=== PATIENT | male | born 1940 | race Caucasian/White ===

== ENCOUNTER 2016-11-18 08:35 | Emergency (ER) | payer OTHER ==
[~2016-11-18] VITALS: Ht 172.7 cm; Wt 75.0 kg
[~2016-11-18 08:35] MED LIST: ALBUD HHN; ALFUZOSIN HYDRO10 M1 PO; ATORVASTATIN CA40 M1 PO; ATRUD HHN; AZOPT10 ML OU; BETIMOL5 M1 OP; BETIMOL5 M1 OU; CEL250 PO; CEL500 PO; FOSAMAX70 MG PO; GOOD SENSE ASPI81 M3 PO; HYDROCHLOROTH12.5 M2 PO; LAC PO; LEVAQUIN750 MG PO; LEVOTHYROXINE0.05 M2 PO; LOVASTATIN40 MG PO; MAXIMUM D310000 IU PO; MESTINON TIMES180 MG PO; MESTINON60 MG PO; NEU300 PO; NIFEDIPINE ER30 MG PO; OMEPRAZOLE DR20 M1 PO; PREDNISONE2.5 MG PO; SERTRALINE HYD100 MG PO; TES100 PO; ZESTRIL5 MG PO; ZOL50 PO
[2016-11-18 08:57] VITALS: BP 140/85
== END 2016-11-18 10:58 | disposition home or self-care (01) ==
LOC: ED 08:35
DX: L02.212 Cutaneous abscess of back [any part, except buttock and flank] (principal); I10 Essential (primary) hypertension; E03.9 Hypothyroidism, unspecified
CPT/HCPCS: J2001

== ENCOUNTER 2016-12-18 14:51 | Inpatient (IN) | payer OTHER ==
[~2016-12-18] VITALS: Ht 172.7 cm; Wt 75.3 kg
[2016-12-18 16:03] LABS: microscopic required? NO
[2016-12-18 16:31] LABS: PLATELET COUNT 176 x10^3mcL (130-400)
[2016-12-18 16:35] LABS: BASOPHIL % 2.1 % (0-2)
[2016-12-18 16:50] LABS: CALCIUM 8.6 mg/dL (8.5-10.1); CARBON DIOXIDE 30.5 mmol/L (21-32); CHLORIDE SERUM 111 mmol/L (98-107); CREATININE SERUM 1.3 mg/dL (0.7-1.3); GLUCOSE SERUM 95 mg/dL (74-106); POTASSIUM SERUM 3.9 mmol/L (3.5-5.1); SODIUM SERUM 148 mmol/L (136-145)
[2016-12-18 16:58] LABS: CK-MB 1.3 ng/mL (0-3.6)
[2016-12-18 17:02] LABS: ALBUMIN 3.7 g/dL (3.4-5.0); ALKALINE PHOSPHATASE 63 U/L (46-116); ALT/SGPT 26 U/L (16-63); AST/SGOT 28 U/L (15-37); BILIRUBIN TOTAL 0.41 mg/dL (0.20-1.00)
[2016-12-18 17:13] LABS: T3 TOTAL 0.71 ng/mL
[2016-12-18 18:32] VITALS: BP 135/71
[2016-12-18 18:38] VITALS: Ht 172.7 cm; Wt 75.3 kg
[2016-12-18 19:18] LABS: UA SPECIFIC GRAVITY >=1.030 (1.005-1.035); urine erythrocyte NEGATIVE (NEGATIVE)
[2016-12-18 19:23] LABS: FREE T4 0.85 ng/dL (0.76-1.46); FREE THYROXINE INDEX 1.8 ug/dL (1.4-4.5); T4(THYROXINE) 5.8 ug/dL (4.7-13.3)
[2016-12-18 19:27] LABS: AMPHETAMINE QUAL UR NONE DETECTED (NEG <=1000)
[2016-12-18 20:21] LABS: C REACTIVE PROTEIN < 0.2 mg/dL (<=0.9)
[2016-12-18 20:48] LABS: CHOLESTEROL/HDL RATIO 3.1
[2016-12-18 21:06] LABS: ERYTHROCYTE SED RATE 20 mm/hr (0-20)
[2016-12-18 22:12] VITALS: BP 117/62
[2016-12-19 05:55] VITALS: BP 139/81
[2016-12-19 06:39] LABS: CALCIUM 7.8 mg/dL (8.5-10.1); CARBON DIOXIDE 27.7 mmol/L (21-32); CHLORIDE SERUM 111 mmol/L (98-107); GLUCOSE SERUM 90 mg/dL (74-106); MAGNESIUM 1.9 mg/dL (1.8-2.4); PHOSPHOROUS 3.3 mg/dL (2.5-4.9); POTASSIUM SERUM 3.9 mmol/L (3.5-5.1); SODIUM SERUM 145 mmol/L (136-145)
[2016-12-19 07:01] LABS: BASOPHIL % 0.5 % (0-2); PLATELET COUNT 165 x10^3mcL (130-400)
[2016-12-19 07:17] LABS: RED CELL DISTRIBUTION WIDTH 14.8 % (11.5-14.5)
[2016-12-19 10:06] VITALS: BP 153/83
[2016-12-19 13:43] VITALS: BP 136/85
[2016-12-19 18:09] VITALS: BP 156/82
[2016-12-19 21:55] VITALS: BP 152/74
[2016-12-20 06:04] VITALS: BP 143/85
[2016-12-20 10:17] VITALS: BP 145/83
[2016-12-20 14:00] VITALS: BP 126/77
[2016-12-20 18:21] VITALS: BP 142/76
[2016-12-20 21:49] VITALS: BP 115/76
[2016-12-21 05:27] VITALS: BP 104/69
[2016-12-21 07:03] LABS: BASOPHIL % 0.3 % (0-2); PLATELET COUNT 190 x10^3mcL (130-400)
[2016-12-21 07:07] LABS: RED CELL DISTRIBUTION WIDTH 14.7 % (11.5-14.5)
[2016-12-21 07:22] LABS: CALCIUM 8.5 mg/dL (8.5-10.1); CARBON DIOXIDE 28.6 mmol/L (21-32); CHLORIDE SERUM 109 mmol/L (98-107); GLUCOSE SERUM 86 mg/dL (74-106); POTASSIUM SERUM 3.6 mmol/L (3.5-5.1); SODIUM SERUM 146 mmol/L (136-145)
[2016-12-21 10:22] VITALS: BP 121/74
[2016-12-21] MEDS ORDERED: PROS5 PO (11:13)
[2016-12-21] MEDS ORDERED: NATURAL SAW PA160 MG PO (11:15)
[2016-12-21] MEDS ORDERED: NIFEDIPINE30 MG (11:44)
[2016-12-21 12:01] VITALS: BP 121/74
== END 2016-12-21 13:24 | disposition home or self-care (01) | DRG 73 ==
LOC: ED 14:51 → DU 17:36
PROVIDERS: Family Medicine; Specialist; ADMIT Family Medicine
DX: G90.9 Disorder of the autonomic nervous system, unspecified (principal); N17.0 Acute kidney failure with tubular necrosis; E87.0 Hyperosmolality and hypernatremia; E86.0 Dehydration; K21.9 Gastro-esophageal reflux disease without esophagitis; E03.9 Hypothyroidism, unspecified; F43.10 Post-traumatic stress disorder, unspecified; G70.00 Myasthenia gravis without (acute) exacerbation; E78.5 Hyperlipidemia, unspecified; E87.8 Other disorders of electrolyte and fluid balance, not elsewhere classified; H91.93 Unspecified hearing loss, bilateral; Z53.29 Procedure and treatment not carried out because of patient's decision for other reasons; I95.9 Hypotension, unspecified; I10 Essential (primary) hypertension; M81.0 Age-related osteoporosis without current pathological fracture; G62.9 Polyneuropathy, unspecified; W19.XXXA Unspecified fall, initial encounter; Y93.89 Activity, other specified; Z95.0 Presence of cardiac pacemaker; Z86.73 Personal history of transient ischemic attack (TIA), and cerebral infarction without residual deficits; Y92.89 Other specified places as the place of occurrence of the external cause; Z90.49 Acquired absence of other specified parts of digestive tract; Y99.8 Other external cause status; Z79.899 Other long term (current) drug therapy; Z83.3 Family history of diabetes mellitus; Z80.9 Family history of malignant neoplasm, unspecified; Z81.8 Family history of other mental and behavioral disorders; Z98.42 Cataract extraction status, left eye; Z98.41 Cataract extraction status, right eye
CPT/HCPCS: 36600; 80307; 83880; 84439; G0480; J1885; J3475; J7030; J7506; J7517; Q0092

== ENCOUNTER 2017-08-20 08:42 | Inpatient (IN) | payer OTHER ==
[~2017-08-20] VITALS: Ht 172.7 cm; Wt 74.4 kg
[~2017-08-20 08:42] MED LIST changes: +NATURAL SAW PA160 MG PO; +NIFEDIPINE30 MG; +PROS5 PO
[2017-08-20 12:40] LABS: BASOPHIL % 0.4 % (0-2); PLATELET COUNT 164 x10^3mcL (130-400)
[2017-08-20 12:42] LABS: RED CELL DISTRIBUTION WIDTH 14.7 % (11.5-14.5)
[2017-08-20 12:44] LABS: CALCIUM 8.9 mg/dL (8.5-10.1); CARBON DIOXIDE 28.8 mmol/L (21-32); CHLORIDE SERUM 102 mmol/L (98-107); CREATININE SERUM 1.1 mg/dL (0.7-1.3); GLUCOSE SERUM 93 mg/dL (74-106); POTASSIUM SERUM 3.5 mmol/L (3.5-5.1); SODIUM SERUM 142 mmol/L (136-145)
[2017-08-20 12:49] LABS: ALBUMIN 3.7 g/dL (3.4-5.0); ALKALINE PHOSPHATASE 84 U/L (46-116); ALT/SGPT 35 U/L (16-63); AST/SGOT 46 U/L (15-37); BILIRUBIN TOTAL 0.5 mg/dL (0.20-1.00); HDL CHOLESTEROL 45 mg/dL (40-60); LIPASE 191 IU/L (73-393); TOTAL PROTEIN, SERUM 7.2 g/dL (6.4-8.2); TRIGLYCERIDES 113 mg/dL (<150)
[2017-08-20 12:50] LABS: UA SPECIFIC GRAVITY >=1.030 (1.005-1.035); microscopic required? YES; urine erythrocyte NEGATIVE (NEGATIVE)
[2017-08-20 12:53] LABS: CHOLESTEROL 129 mg/dL (<200); CHOLESTEROL/HDL RATIO 2.9
[2017-08-20 13:55] LABS: FREE T4 1.09 ng/dL (0.76-1.46); FREE THYROXINE INDEX 2.7 ug/dL (1.4-4.5); T4(THYROXINE) 8.7 ug/dL (4.7-13.3)
[2017-08-20 14:19] LABS: T3 TOTAL 0.65 ng/mL
[2017-08-20 15:43] VITALS: BP 124/74
[2017-08-20 15:46] LABS: MAGNESIUM 2.1 mg/dL (1.8-2.4); PHOSPHOROUS 4.3 mg/dL (2.5-4.9)
[2017-08-20 17:45] VITALS: BP 14/76
[2017-08-20 21:14] VITALS: BP 147/81
[2017-08-21 06:02] VITALS: BP 143/79
[2017-08-21 08:52] VITALS: BP 136/82
[2017-08-21 11:49] LABS: BASOPHIL % 0.5 % (0-2); PLATELET COUNT 159 x10^3mcL (130-400); RED CELL DISTRIBUTION WIDTH 14.1 % (11.5-14.5)
[2017-08-21 11:50] LABS: CALCIUM 8.4 mg/dL (8.5-10.1); CARBON DIOXIDE 25.3 mmol/L (21-32); CHLORIDE SERUM 107 mmol/L (98-107); CREATININE SERUM 0.9 mg/dL (0.7-1.3); GLUCOSE SERUM 129 mg/dL (74-106); MAGNESIUM 2.2 mg/dL (1.8-2.4); PHOSPHOROUS 2.6 mg/dL (2.5-4.9); POTASSIUM SERUM 3.6 mmol/L (3.5-5.1); SODIUM SERUM 142 mmol/L (136-145)
[2017-08-21 13:05] VITALS: BP 129/83
[2017-08-21 17:37] VITALS: BP 135/83
[2017-08-21 20:53] VITALS: BP 143/84
[2017-08-22 06:29] VITALS: BP 135/89
[2017-08-22 08:25] LABS: CALCIUM 8.4 mg/dL (8.5-10.1); CARBON DIOXIDE 23.1 mmol/L (21-32); CHLORIDE SERUM 113 mmol/L (98-107); CREATININE SERUM 0.8 mg/dL (0.7-1.3); GLUCOSE SERUM 96 mg/dL (74-106); POTASSIUM SERUM 3.4 mmol/L (3.5-5.1); SODIUM SERUM 147 mmol/L (136-145)
[2017-08-22 08:40] LABS: BASOPHIL % 0.5 % (0-2); PLATELET COUNT 175 x10^3mcL (130-400)
[2017-08-22 09:03] VITALS: BP 145/92
[2017-08-22 14:15] VITALS: BP 130/84
[2017-08-22 15:48] VITALS: BP 135/79
[2017-08-22] MEDS ORDERED: METP PO (15:49)
[2017-08-22 15:59] VITALS: BP 135/79
== END 2017-08-22 17:44 | disposition home or self-care (01) | DRG 377 ==
LOC: ED 08:42 → DU 13:45
PROVIDERS: Internal Medicine Gastroenterology; Specialist; Student in an Organized Health Care Education/Training Program
PROC: 0DJD8ZZ Inspection of Lower Intestinal Tract, Via Natural or Artificial Opening Endoscopic (ICD-10-PCS; principal; 2017-08-22 09:30)
DX: K57.31 Diverticulosis of large intestine without perforation or abscess with bleeding (principal); N17.0 Acute kidney failure with tubular necrosis; I10 Essential (primary) hypertension; K62.5 Hemorrhage of anus and rectum; F41.9 Anxiety disorder, unspecified; F43.10 Post-traumatic stress disorder, unspecified; E03.9 Hypothyroidism, unspecified; R62.7 Adult failure to thrive; I45.81 Long QT syndrome; E86.0 Dehydration; N40.0 Benign prostatic hyperplasia without lower urinary tract symptoms; G70.00 Myasthenia gravis without (acute) exacerbation; Z98.1 Arthrodesis status; Z95.0 Presence of cardiac pacemaker; Z86.73 Personal history of transient ischemic attack (TIA), and cerebral infarction without residual deficits; Z82.0 Family history of epilepsy and other diseases of the nervous system; Z83.3 Family history of diabetes mellitus; Z80.9 Family history of malignant neoplasm, unspecified
CPT/HCPCS: 45378; 83880; 84439; 87804; J1200; J1610; J1885; J2250; J2310; J2765; J3010; J3480; J3490; J7030; J7517; Q0092; Q9966; Q9967

== ENCOUNTER 2018-05-17 10:24 | Inpatient (IN) | payer OTHER ==
[~2018-05-17] VITALS: Ht 172.7 cm; Wt 83.9 kg
[~2018-05-17 10:24] MED LIST changes: +METP PO
[2018-05-17 10:30] VITALS: Ht 172.7 cm; Wt 83.9 kg
[2018-05-17 12:47] LABS: BASOPHIL % 0.2 % (0-2); PLATELET COUNT 155 x10^3mcL (130-400)
[2018-05-17 12:48] LABS: RED CELL DISTRIBUTION WIDTH 16.1 % (11.5-14.5)
[2018-05-17 13:03] LABS: CARBON DIOXIDE 30.8 mmol/L (21-32); CHLORIDE SERUM 104 mmol/L (98-107); GLUCOSE SERUM 117 mg/dL (74-106); POTASSIUM SERUM 3.5 mmol/L (3.5-5.1); SODIUM SERUM 142 mmol/L (136-145)
[2018-05-17 13:07] LABS: ALBUMIN 3.5 g/dL (3.4-5.0); ALKALINE PHOSPHATASE 73 U/L (46-116); ALT/SGPT 36 U/L (16-63); AMYLASE 51 U/L (25-115); AST/SGOT 25 U/L (15-37); BILIRUBIN TOTAL 0.6 mg/dL (0.20-1.00); LIPASE 146 IU/L (73-393); TOTAL PROTEIN, SERUM 6.4 g/dL (6.4-8.2)
[2018-05-17 14:58] LABS: microscopic required? NO
[2018-05-17 15:10] LABS: urine erythrocyte NEGATIVE (NEGATIVE)
[2018-05-17] MEDS ORDERED: ASPIRIN CHILDRE81 MG (15:18)
[2018-05-17] MEDS ORDERED: PYRIDOSTIGMINE (15:19)
[2018-05-17] MEDS ORDERED: VITAMIN B121000 MCG (15:20)
[2018-05-17] MEDS ORDERED: BUPROPION HCL150 M1 (15:20)
[2018-05-17 16:24] VITALS: BP 143/76
[2018-05-17 20:08] VITALS: BP 137/80
[2018-05-18 04:58] VITALS: BP 159/90
[2018-05-18 07:06] LABS: BASOPHIL % 0.4 % (0-2); PLATELET COUNT 157 x10^3mcL (130-400)
[2018-05-18] MEDS ORDERED: FLA500 PO (07:52)
[2018-05-18] MEDS ORDERED: CIPRO500 MG PO (07:52)
[2018-05-18] MEDS ORDERED: NOR10T PO (07:53)
[2018-05-18 09:18] VITALS: BP 154/93
[2018-05-18 12:01] VITALS: BP 154/93
== END 2018-05-18 15:05 | disposition home or self-care (01) | DRG 392 ==
LOC: ED 10:24 → MU 15:08
PROVIDERS: Internal Medicine; Specialist
DX: K57.32 Diverticulitis of large intestine without perforation or abscess without bleeding (principal); F43.10 Post-traumatic stress disorder, unspecified; X58.XXXA Exposure to other specified factors, initial encounter; G70.00 Myasthenia gravis without (acute) exacerbation; E66.9 Obesity, unspecified; I10 Essential (primary) hypertension; Z95.5 Presence of coronary angioplasty implant and graft; Z86.73 Personal history of transient ischemic attack (TIA), and cerebral infarction without residual deficits; Y93.89 Activity, other specified; Y92.89 Other specified places as the place of occurrence of the external cause; Y99.8 Other external cause status
CPT/HCPCS: J0694; J1885; J2543; J7030; J7042; Q9967

== ENCOUNTER 2018-07-25 14:05 | Inpatient (IN) | payer OTHER ==
[~2018-07-25] VITALS: Ht 172.7 cm; Wt 80.5 kg
[~2018-07-25 14:05] MED LIST changes: +ASPIRIN CHILDRE81 MG; +BUPROPION HCL150 M1; +CIPRO500 MG PO; +FLA500 PO; +NOR10T PO; -OMEPRAZOLE DR20 M1 PO; +OMEPRAZOLE MAGN20 M1 PO; +VITAMIN B121000 MCG
[2018-07-25 14:16] VITALS: Ht 172.7 cm; Wt 80.5 kg
[2018-07-25 14:46] LABS: BASOPHIL % 0.5 % (0-2); PLATELET COUNT 205 x10^3mcL (130-400)
[2018-07-25 14:47] LABS: RED CELL DISTRIBUTION WIDTH 15.1 % (11.5-14.5)
[2018-07-25 14:59] LABS: CALCIUM 9.5 mg/dL (8.5-10.1); CARBON DIOXIDE 29.8 mmol/L (21-32); CHLORIDE SERUM 101 mmol/L (98-107); CREATININE SERUM 1.5 mg/dL (0.7-1.3); GLUCOSE SERUM 122 mg/dL (74-106); POTASSIUM SERUM 3.2 mmol/L (3.5-5.1); SODIUM SERUM 141 mmol/L (136-145)
[2018-07-25 15:04] LABS: ALBUMIN 3.7 g/dL (3.4-5.0); ALKALINE PHOSPHATASE 78 U/L (46-116); ALT/SGPT 22 U/L (16-63); AST/SGOT 17 U/L (15-37); BILIRUBIN TOTAL 0.94 mg/dL (0.20-1.00); TOTAL PROTEIN, SERUM 7.5 g/dL (6.4-8.2)
[2018-07-25 15:58] LABS: microscopic required? NO
[2018-07-25 16:23] LABS: UA SPECIFIC GRAVITY >=1.030 (1.005-1.035); urine erythrocyte NEGATIVE (NEGATIVE)
[2018-07-25 17:48] VITALS: BP 136/68
[2018-07-25 19:35] VITALS: BP 122/62
[2018-07-26 05:41] VITALS: BP 125/65
[2018-07-26 06:58] LABS: CALCIUM 8.7 mg/dL (8.5-10.1); CARBON DIOXIDE 27.7 mmol/L (21-32); CHLORIDE SERUM 108 mmol/L (98-107); CREATININE SERUM 1.2 mg/dL (0.7-1.3); GLUCOSE SERUM 99 mg/dL (74-106); MAGNESIUM 2.2 mg/dL (1.8-2.4); SODIUM SERUM 143 mmol/L (136-145)
[2018-07-26 09:58] VITALS: BP 125/68
[2018-07-26 13:32] VITALS: BP 124/65
[2018-07-26 16:09] VITALS: BP 136/66
[2018-07-26 21:02] VITALS: BP 145/67
[2018-07-27 06:18] VITALS: BP 124/67
[2018-07-27 09:09] VITALS: BP 142/71
[2018-07-27 12:44] VITALS: BP 125/67
[2018-07-27 15:02] VITALS: BP 125/67
[2018-07-27] MEDS ORDERED: PYRIDOSTIGMINE (15:02)
== END 2018-07-27 16:19 | disposition short-term general hospital (02) | DRG 641 ==
LOC: ED 14:05 → DU 17:08 → MU 07-27 09:56
PROVIDERS: Emergency Medicine; Internal Medicine Pulmonary Disease
DX: E87.6 Hypokalemia (principal); I10 Essential (primary) hypertension; G70.00 Myasthenia gravis without (acute) exacerbation; R26.9 Unspecified abnormalities of gait and mobility; F43.10 Post-traumatic stress disorder, unspecified; W19.XXXA Unspecified fall, initial encounter; M79.10 Myalgia, unspecified site; Z83.3 Family history of diabetes mellitus; Z80.9 Family history of malignant neoplasm, unspecified; Z86.73 Personal history of transient ischemic attack (TIA), and cerebral infarction without residual deficits; Z95.0 Presence of cardiac pacemaker; Z81.8 Family history of other mental and behavioral disorders; Z79.82 Long term (current) use of aspirin; Z79.899 Other long term (current) drug therapy; Y93.89 Activity, other specified; Y92.89 Other specified places as the place of occurrence of the external cause; Y99.8 Other external cause status
CPT/HCPCS: 97110-GP; 97116-GP; 97530-GP; J1650; J3010; J3480; J7030; J7040; Q0092